=== PATIENT | female | born 1940 | race Caucasian/White ===

== ENCOUNTER 2019-12-25 21:55 | Emergency (ER) | payer OTHER, SELFPAY ==
--- NOTE | ~2019-12-25 | XR_ITS ---
EXAMINATION: XR hand RT min 3V DATE: 12/25/2019 22:38 INDICATION: Right hand injury and pain. TECHNIQUE: 3 views of right hand were obtained. COMPARISON: None. FINDINGS: Bone alignment is normal. No fracture. There is mild osteoarthritis of triscaphe joint, fir st carpometacarpal joint, and most of the metacarpophalangeal joints and interphalangeal joints. IMPRESSION: 1. Mild polyarticular osteoarthritis. Reviewed, dictated and finalized at location A.
[2019-12-25 22:00] VITALS: BP 173/71; PULSE 94; RESP 18; TEMP 36.8; O2SAT 94
--- NOTE | 2019-12-25 22:07 | ED.GENADULT ---
HPI - General Adult General Chief complaint: Extremity Injury, Upper Stated complaint: R HAND PAIN Time Seen by Provider: 12/25/19 21:59 Source: patient Mode of arrival: ambulatory Limitations: no limitations History of Present Illness HPI narrative: Pt presents for evaluation of traumatic right hand pain. Patient states she misstep off a ladder while hanging pictures, and hit her head on the latter fall coming down. No fall on an outstretched hand. No numbness. Bruising on the lateral aspect of the fifth digit with pain with motion. Pain is dull and aching in nature. No head trauma or loss of consciousness. No back pain, hip pain, leg pain. Related Data Allergies Allergy/AdvReac Type Severity Reaction Status Date / Time doxycycline Allergy Unknown Verified 03/21/14 15:55 morphine Allergy Unknown HIVES, Verified 08/22/15 07:19 NAUSEA AND VOMITING Review of Systems Review of Systems: Narrative: CONSTITUTIONAL: Denies fever CARDIOVASCULAR: Denies chest pain RESPIRATORY: Denies cough or dyspnea. GASTROINTESTINAL: Denies abdominal pain SKIN: Denies rash MUSCULOSKELETAL: Denies back pain NEUROLOGIC: Denies headache [facility] Past Medical History Medical History Cataract Depression Diabetes Hypercholesterolemia Surgical History Surgical History History of hip surgery History of tubal ligation Family History Family History Other Diabetes mellitus Family history of cardiovascular disease Family history of malignant neoplasm Social History Social History Smoking status: Never smoker Alcohol intake: current Exam Narrative: Exam Narrative: GENERAL: Awake, alert, conversant HEAD: Normocephalic, atraumatic. EYES: PERRLA and EOMI. ENT: Nares clear, no rhinorrhea or epistaxis. Mucous membranes moist. NECK: Supple. CHEST: No respiratory distress, breathing even and non labored HEART: Regular rate, sinus rhythm ABDOMEN:Non distended, non tender EXTREMITIES: Normal range of motion. Edema, ecchymosis, mild deformity lateral aspect of the right fifth metacarpal with tenderness to palpation distally. Radial pulse 2+. Intact sensation median, ulnar, radial nerve distribution. Forearm compartment is soft. No range of motion deficit at the wrist, elbow, shoulder. No cervical midline pain. No hip tenderness bilaterally. Patient is ambulatory. SKIN: Warm, dry, no rash. NEURO:No focal deficits. Alert and oriented x3 Course Vital Signs Vital signs: Vital Signs Temperature 36.8 C 12/25/19 22:00 Pulse Rate 94 12/25/19 22:00 Respiratory Rate 18 12/25/19 22:00 Blood Pressure 173/71 H 12/25/19 22:00 Pulse Oximetry 94 12/25/19 22:00 Temperature 36.8 C 12/25/19 22:00 Pulse Rate 78 12/25/19 23:38 Respiratory Rate 18 12/25/19 23:38 Blood Pressure 132/77 12/25/19 23:38 Pulse Oximetry 98 12/25/19 23:38 Medical Decision Making MDM Narrative Medical decision making narrative: Patient presented with hematoma to right hand after miss stepping off of a ladder. No wrist pain, elbow pain or shoulder pain. No head trauma or neck pain. Patient with good range of motion, soft compartments, neurovascularly intact in the right hand. No open wounds. Mild tenderness over the hematoma site. Patient with no acute osseous abnormality on imaging. At this point most consistent with hematoma. Patient was discharged home advised to rest, ice, and to use anti-inflammatory therapy. Vital Signs Vital Signs: Vital Signs Temperature 36.8 C 12/25/19 22:00 Pulse Rate 94 12/25/19 22:00 Respiratory Rate 18 12/25/19 22:00 Blood Pressure 173/71 H 12/25/19 22:00 Pulse Oximetry 94 12/25/19 22:00 Temperature 36.8 C 12/25/19 22:00 Pulse Rate 78 12/25/19 23
[2019-12-25 23:38] VITALS: BP 132/77; PULSE 78; RESP 18; O2SAT 98
[2019-12-25 23:48] VITALS: BP 122/81; PULSE 70; RESP 19; TEMP 36.7; O2SAT 100
== END 2019-12-25 23:50 | disposition home or self-care (01) ==
PROVIDERS: Emergency Provider Emergency Medicine; PCP Family Medicine
DX: S66.911A Strain of unspecified muscle, fascia and tendon at wrist and hand level, right hand, initial encounter (principal); S60.221A Contusion of right hand, initial encounter; E11.9 Type 2 diabetes mellitus without complications; H26.9 Unspecified cataract; W11.XXXA Fall on and from ladder, initial encounter
CPT/HCPCS: 73130; 99283

== ENCOUNTER 2020-03-21 11:21 | Outpatient (CLI) | payer OTHER, SELFPAY ==
--- NOTE | ~2020-03-21 | XR_ITS ---
XR chest 2V DATE: 03/21/2020 11:47 INDICATION: Hypertension TECHNIQUE: PA and lateral views COMPARISON: 11/17/2017 2 view chest FINDINGS: Borderline heart size. No hilar or mediastinal enlargement. There is mild basilar infiltr ate and/or atelectasis, greater on the left. The lungs are otherwise clear. No pulmonary vascular c ongestion or pleural effusion or pneumothorax. Degenerative changes of thoracic and lumbar spine. IMPRESSION: Mild basilar infiltrate and/or atelectasis, primarily on the left Reviewed, dictated and finalized at location B.
--- NOTE | ~2020-03-21 | XR_ITS ---
XR hip RT min 2V DATE: 03/21/2020 11:47 INDICATION: Right hip pain. No injury. TECHNIQUE: AP, lateral, crosstable lateral views of right hip COMPARISON: None FINDINGS: There is extensive calcification of the fifth femoral artery. No fracture or dislocation, avascular necrosis or bone destruction of the right hip is evident. The r ight hip joint space appears relatively preserved. The pubic symphysis and sacral iliac joints appear intact. There are 3 pins at the proximal left femur. IMPRESSION: No fracture or dislocation of right hip Reviewed, dictated and finalized at location B.
== END 2020-03-21 11:22 | disposition home or self-care (01) ==
LOC: ANHIMG 11:25
PROVIDERS: PCP Family Medicine; Visit Provider Family Medicine
DX: I10 Essential (primary) hypertension (principal); M25.551 Pain in right hip; R91.8 Other nonspecific abnormal finding of lung field
CPT/HCPCS: 71046; 73502

== ENCOUNTER → 2020-04-25 11:17 | Outpatient (CLI) | payer OTHER, SELFPAY ==
--- NOTE | ~2020-04-25 | MM_ITS ---
EXAMINATION: MM screening [facility] BI w luan HISTORY: Screening TECHNIQUE: Craniocaudal and mediolateral oblique 3-D tomosynthesis images were obtained and synthetic 2-D images were generated. CAD analysis was submitted and interpreted. COMPARISON: Comparison to multiple prior studies sequentially, with oldest reviewed study dated 03/2014. BREAST PARENCHYMAL COMPOSITION: Breast composed of scattered areas of fibroglandular density. FINDINGS: There is no evidence of suspicious mass, calcification, or architectural distortion to sugg est malignancy in either breast. There has been no suspicious interval change. IMPRESSION: 1. No mammographic evidence of malignancy. 2. Recommend routine screening mammography in one year. BI-RADS Category 1: Negative Reviewed, dictated and finalized at location A.
== END ==
PROVIDERS: PCP Family Medicine; Visit Provider Obstetrics & Gynecology Gynecologic Oncology
DX: Z12.31 Encounter for screening mammogram for malignant neoplasm of breast (principal)
CPT/HCPCS: 77063; 77067

== ENCOUNTER → 2020-09-28 09:26 | Outpatient (CLI) | payer OTHER, SELFPAY ==
--- NOTE | ~2020-09-28 | XR_ITS ---
XR chest 2V 09/28/2020 09:47 Indication: 2 view chest Procedure: Comparison to multiple prior studies sequentially, with oldest reviewed study dated 08/07. Comparison: Comparison to multiple prior studies sequentially, with oldest reviewed study dated 07/18. Findings: Left basilar atelectasis. No focal air space disease, pulmonary edema, pleural effusion or suspected pneumothorax. Heart size normal. Impression: 1: Left basilar atelectasis. Reviewed, dictated and finalized at location B. [employer] Impression: 1: Left basilar atelectasis.
== END ==
PROVIDERS: PCP Family Medicine; Visit Provider Physician Assistant Medical
DX: J98.11 Atelectasis (principal); R91.8 Other nonspecific abnormal finding of lung field
CPT/HCPCS: 71046

== ENCOUNTER → 2021-02-04 10:31 | Outpatient (CLI) | payer OTHER, SELFPAY ==
--- NOTE | ~2021-02-04 | XR_ITS ---
EXAMINATION: XR chest 2V 02/04/2021 10:48 INDICATION: Cough PROCEDURE: 2 view chest COMPARISON: Comparison to multiple prior studies sequentially, with oldest reviewed study dated 05/11. FINDINGS: The lungs are clear. The cardiomediastinal silhouette is within normal limits. There are no pleural effusions. There is no pneumothorax suspected. IMPRESSION: 1: NO ACUTE CARDIOPULMONARY DISEASE. Reviewed, dictated and finalized at location B.
== END ==
PROVIDERS: PCP Family Medicine; Visit Provider Nurse Practitioner Family
DX: R05 Cough (principal)
CPT/HCPCS: 71046

== ENCOUNTER 2022-01-06 03:01 | Day surgery (SDC) | payer OTHER, SELFPAY ==
[2021-12-23 14:37] VITALS: BMI 32.1
--- NOTE | 2022-01-06 07:19 | WPDANESEPPF ---
Anes - Initial Pre Proc Eval Procedure: Operation Date: 01/06/22 10:00 Proposed Procedures p Screening Colonoscopy - Reynaldo Richardson MD Date/Time: 01/06/22 07:19 Surgeon: Reynaldo Richardson MD Pre Op Diagnosis: neoplasm screening Patient Data Age: 81 Gender: F Height: 1.65 m Weight: 87.7 kg Allergies Allergy/AdvReac Type Severity Reaction Status Date / Time doxycycline Allergy Mild yeast Verified 01/06/22 09:10 infection morphine Allergy Unknown HIVES, Verified 01/06/22 09:10 NAUSEA AND VOMITING lisinopril AdvReac Cough Verified 01/06/22 09:10 Home Medications Medication Instructions Recorded Confirmed Type potassium chloride 10 mEq See Rx Instructions .ROUTE 03/14/21 12/23/21 Rx tablet,extended release .COMPLEX #90 tablet gabapentin 300 mg capsule 300 mg PO DAILY 05/06/21 12/23/21 History atorvastatin 40 mg tablet 40 mg PO DAILY #90 tablet 06/21/21 12/23/21 Rx famotidine 20 mg tablet 20 mg PO DAILY #90 tablet 06/21/21 12/23/21 Rx furosemide 40 mg tablet 40 mg PO QAM #90 tablet 06/21/21 12/23/21 Rx glipizide 5 mg tablet 5 mg PO DAILY #90 tablet 06/21/21 12/23/21 Rx metformin 500 mg tablet See Rx Instructions .ROUTE 10/08/21 12/23/21 Rx .COMPLEX #360 tablet sertraline [Zoloft] 25 mg PO DAILY 12/23/21 12/23/21 History tizanidine [Zanaflex] 4 mg PO TID PRN 12/23/21 History triamcinolone acetonide [Triderm] 1 applic TOPICAL BID 12/23/21 12/23/21 History Patient hx anesthesia problems: none Family hx anesthesia problems: none Results Review: All pre-operative results and documents have been reviewed as part of the pre-operative evaluation. [facility] Past Medical History Medical History BMI 31.0-31.9,adult Body mass index [BMI] 32.0-32.9, adult Cataract Depression Diabetes Diabetes Hypercholesterolemia Loss of teeth due to extraction Surgical History Surgical History History of hip surgery History of tubal ligation Family History Family History Father Tobacco abuse Lung cancer Bladder cancer Mother Aneurysm Kidney failure Other Diabetes mellitus Family history of cardiovascular disease Family history of malignant neoplasm Social History Social History Smoking status: Former smoker Tobacco type: cigarettes Second hand tobacco smoke exposure: Yes Alcohol intake: current Substance use: never Substance use type: does not use Living arrangements: alone Additional occupation/education comments: milieu technician [employer] Gender identity (if verbalized by the patient): Female Anes - Nesha Final PreProcedure Day of Procedure 01/06/22 07:19 Patient weight: obese Heart: regular rate and rhythm Lungs: clear to auscultation and normal air movement Airway: Mallampati scale class II Neurological: alert and oriented Last oral intake: >/= 8 hours ASA classification: III Emergent: no Anesthetic plan: proceed Anesthesia type and monitoring: general GIVS and standard monitoring Results Review: All pre-operative results and documents have been reviewed as part of the pre-operative evaluation. Informed Consent: The patient's anesthetic plan and its attendant risks and benefits were discussed with the patient/family/POA. Questions were solicited and answers provided to the satisfaction of the patient/family/POA.
[2022-01-06 09:11] VITALS: BP 159/69; PULSE 81; RESP 19; TEMP 36.7; O2SAT 99
--- NOTE | 2022-01-06 09:19 | WPDGICN ---
Assessment and Plan Assessment and plan (1) Encounter for screening colonoscopy: Code(s): Z12.11 - Encounter for screening for malignant neoplasm of colon Status: Acute Assessment and Plan: Patient presents today for screening colonoscopy. Last exam was 10 years ago. Further recommendations will be given after endoscopy. 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 GI Consult Note Consult date/time: 01/06/22 09:19 HPI: Charity Jang is a 81 year old female Presents for screening colonoscopy. Her last exam was 10 years ago. Patient reports her weight appetite and bowel movements are normal. She denies abdominal pain. She has had no bleeding. 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 Additionally she has had lesions on both arms and on her face. Patient has no evidence for residual disease at present. She presents today for neoplasia screening colonoscopy. Review of Systems Review of Systems: All systems reviewed & are unremarkable except as noted in HPI and below PMFSH Past Medical History Medical History BMI 31.0-31.9,adult Body mass index [BMI] 32.0-32.9, adult Cataract Depression Diabetes Diabetes Hypercholesterolemia Loss of teeth due to extraction Surgical History Surgical History History of hip surgery History of tubal ligation Family History Family History Father Tobacco abuse Lung cancer Bladder cancer Mother Aneurysm Kidney failure Other Diabetes mellitus Family history of cardiovascular disease Family history of malignant neoplasm Social History Social History Smoking status: Former smoker Tobacco type: cigarettes Second hand tobacco smoke exposure: Yes Alcohol intake: current Substance use: never Substance use type: does not use Living arrangements: alone 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 [employer] Gender identity (if verbalized by the patient): Female Meds Home Medications and Allergies Home Medications Medication Instructions Recorded Confirmed Type potassium chloride 10 mEq See Rx Instructions .ROUTE 03/14/21 12/23/21 Rx tablet,extended release .COMPLEX #90 tablet gabapentin 300 mg capsule 300 mg PO DAILY 05/06/21 12/23/21 History atorvastatin 40 mg tablet 40 mg PO DAILY #90 tablet 06/21/21 12/23/21 Rx famotidine 20 mg tablet 20 mg PO DAILY #90 tablet 06/21/21 12/23/21 Rx furosemide 40 mg tablet 40 mg PO QAM #90 tablet 06/21/21 12/23/21 Rx glipizide 5 mg tablet 5 mg PO DAILY #90 tablet 06/21/21 12/23/21 Rx metformin 500 mg tablet See Rx Instructions .ROUTE 10/08/21 12/23/21 Rx .COMPLEX #360 tablet sertraline [Zoloft] 25 mg PO DAILY 12/23/21 12/23/21 History tizanidine [Zanaflex] 4 mg PO TID PRN 12/23/21 History triamcinolone acetonide [Triderm] 1 applic TOPICAL BID 12/23/21 12/23/21 History Allergies Allergy/AdvReac Type Severity Reaction Status Date / Time doxycycline Allergy Mild yeast Verified 01/06/22 09:10 infection morphine Allergy Unknown HIVES, Verified 01/06/22 09:10 NAUSEA AND VOMITING lisinopril AdvReac Cough Verified 01/06/22 09:10 Vital Signs Vital Signs - 24 hr 01/06/22 09:11 Temperature 98.1 F Pulse Rate 81 Respiratory Rate 19 Blood Pressure 159/69 H Pulse Oximetry 99 Exam Narrative: Physical exam reveals patient to be alert. Vital signs stable. HEENT exam is unremarkable. Patient is anicteric. Lungs are clear to auscultation and percussion. Heart is without murmur or extra sounds. Abdominal exam bowel sounds are present soft nontender with no organomegaly. Digital external rectal exam is normal.
[2022-01-06] MEDS: LACTATED RINGERS 1,000 ML 150 ML IV CONT (09:31)
[2022-01-06 09:34] LABS: Glucose Point of Care 137 mg/dl (65-105)
[2022-01-06 10:11] VITALS: BP 123/56; PULSE 76; RESP 19; O2SAT 98
[2022-01-06 10:21] VITALS: BP 137/61; PULSE 70; RESP 14; O2SAT 98
[2022-01-06 10:31] VITALS: BP 154/84; PULSE 73; RESP 18; O2SAT 100
== END 2022-01-06 10:57 | disposition home or self-care (01) ==
PROVIDERS: PCP Family Medicine; Visit Provider Internal Medicine Gastroenterology
PROC: 0DJD8ZZ Inspection of Lower Intestinal Tract, Via Natural or Artificial Opening Endoscopic (ICD-10-PCS; CPT 45378; principal; 2022-01-06 10:00)
DX: Z12.11 Encounter for screening for malignant neoplasm of colon (principal); E11.9 Type 2 diabetes mellitus without complications; E78.00 Pure hypercholesterolemia, unspecified; H26.9 Unspecified cataract; F32.9 Major depressive disorder, single episode, unspecified; Z87.891 Personal history of nicotine dependence; Z79.84 Long term (current) use of oral hypoglycemic drugs; E66.9 Obesity, unspecified; Z68.31 Body mass index [BMI] 31.0-31.9, adult
CPT/HCPCS: G0121; 82948; J2704; J7120

== ENCOUNTER → 2022-01-16 11:32 | Outpatient (CLI) | payer OTHER, SELFPAY ==
--- NOTE | ~2022-01-16 | MM_ITS ---
EXAMINATION: MM screening [facility] BI w luan HISTORY: Screening mammogram TECHNIQUE: Craniocaudal and mediolateral oblique 3-D tomosynthesis images were obtained and synthetic 2-D images were generated. CAD analysis was submitted and interpreted. COMPARISON: 04/25/2020, 11/29/2018, 11/17/2017 bilateral screening mammogram examinations BREAST PARENCHYMAL COMPOSITION: There are scattered areas of fibroglandular density. FINDINGS: Stable circumscribed intramammary lymph nodes treated posteriorly in the outer mid right br east. Occasional bilateral benign calcifications. There is no evidence of suspicious mass, calcificat ion, or architectural distortion to suggest malignancy in either breast. There has been no suspicious interval change. IMPRESSION: 1. No mammographic evidence of malignancy. 2. Recommend routine screening mammography in one year. BI-RADS Category 2: Benign finding(s). Reviewed, dictated and finalized at location A.
== END ==
PROVIDERS: PCP Family Medicine; Visit Provider Nurse Practitioner Family
DX: Z12.31 Encounter for screening mammogram for malignant neoplasm of breast (principal)
CPT/HCPCS: 77063; 77067

== ENCOUNTER → 2022-02-21 10:49 | Outpatient (CLI) | payer OTHER, SELFPAY ==
--- NOTE | ~2022-02-21 | DEXA_ITS ---
Bone Density Report Name: QUINTIN WHITE Age: 81 Sex: Female Ethnicity: White Date of : 1940 Indication: postmenopausal; screening for osteoporosis; parental hip fracture; prior fracture; Referring Provider: JOO NOLAND Study: Bone densitometry was performed. Exam Date: February 21, 2022 Accession number: [id number] Bone Density: Region BMD T-score Z-score Classification AP Spine (L1-L4) 1.322 2.5 5.2 Normal Femoral Neck (Right) 0.751 -0.9 1.5 Normal Total Hip (Right) 0.953 0.1 2.2 Normal World Health Organization criteria for BMD impression classify patients as: Normal (T-score at or above -1.0), Osteopenia (T-score between -1.0 and -2.5), or Osteoporosis (T-score at or below -2.5). 10-year Fracture Risk: FRAX not reported because: All T-scores for Spine Total, Hip Total, Femoral Neck at or above -1.0 Prior hip or vertebral fracture Previous Exams: Region Exam Age BMD T-score BMD Change BMD Change Date g/cm2 vs Baseline vs Previous AP Spine(L1-L4) 02/21/2022 81 1.322 2.5 0.044* 0.044* 03/23/2017 76 1.278 2.1 Total Hip(Right) 02/21/2022 81 0.953 0.1 -0.012 -0.012 03/23/2017 76 0.965 0.2 *Denotes significance at 95% confidence level, LSC for AP Spine = 0.022 g/cm2, LSC for Total Hip = 0.027 g/cm2 Clinical Information Provided by Patient: Have had a previous hip or vertebral fracture Has had a low trauma fracture Parent has had a hip fracture Has used the following medications: Vitamin D, Calcium Patient maximum height was 66 Menopause Age: 55 No regular weight bearing exercise Onset of menses at age 12 Number of children 2 Impression: The patient has normal bone mass. The patient has risk factors, including: parental hip fracture, previous fracture. No significant bone loss was observed. Discussion: INCREASED RISK OF FRACTURE DUE TO HISTORY OF FRACTURE. The patient's previous fracture puts the patient at high risk of a future fracture. In untreated patients, the risk of osteoporotic fracture increases approximately two-fold for each 1.0 SD decrease in T-score. Low bone density is not the only risk factor for fracture; also consider factors such as patient's age, frailty or poor health, risk of falling, risk of injury, previous osteoporotic fracture, family history of osteoporosis, cigarette smoking, low body weight, etc. Not everyone with a low trauma fracture has osteoporosis; osteomalacia and other metabolic bone disorders should also be considered. Patients who have
== END ==
PROVIDERS: PCP Family Medicine; Visit Provider Family Medicine
DX: Z78.0 Asymptomatic menopausal state (principal)
CPT/HCPCS: 77080